=== PATIENT | male | born 1980 | race Two or more races ===

== ENCOUNTER 2021-04-05 12:10 | Emergency (ER) | payer OTHER ==
[~2021-04-05] VITALS: Ht 167.6 cm; Wt 70.3 kg
[2021-04-05 12:15] VITALS: BP 125/85
[2021-04-05] MEDS ORDERED: LIDOCAINE 1%-EPI 1:100,000 20 ML VIAL TP ONE (12:30)
[2021-04-05] MEDS ORDERED: TDAP [DIPH/PERTUSSIS/TET] 0.5 ML VIAL IM ONE ×2 (12:30→12:38)
[2021-04-05] MEDS ORDERED: LIDOCAINE 1% INJ 50 ML MDV IJ ONE (12:38)
[2021-04-05] MEDS ORDERED: LIDOCAINE 1%-EPI 1:100,000 20 ML VIAL ONE (12:39)
--- NOTE | 2021-04-05 13:09 | NUR ---
Patient discharged to home in stable condition. Written and verbal after care instructions given. Patient verbalizes understanding of instruction.
== END 2021-04-05 13:09 | disposition home or self-care (01) ==
LOC: ER 12:17
DX: S01.81XA Laceration without foreign body of other part of head, initial encounter (principal); W22.8XXA Striking against or struck by other objects, initial encounter; Y93.89 Activity, other specified; Y92.89 Other specified places as the place of occurrence of the external cause; Y99.8 Other external cause status
CPT/HCPCS: 12013; 90471; 90715; 99283; J3490

== ENCOUNTER 2021-04-12 09:31 | Emergency (ER) | payer OTHER ==
[~2021-04-12] VITALS: Ht 167.6 cm; Wt 69.9 kg
[2021-04-12 09:45] VITALS: BP 142/92
--- NOTE | 2021-04-12 10:00 | NUR ---
SUTURE REMOVED BY .
--- NOTE | 2021-04-12 10:05 | NUR ---
Patient discharged to home in stable condition. Written and verbal after care instructions given. Patient verbalizes understanding of instruction.
== END 2021-04-12 10:05 | disposition home or self-care (01) ==
LOC: EDUNIT# 09:31 → ER 09:35
DX: S01.81XD Laceration without foreign body of other part of head, subsequent encounter (principal); W22.8XXD Striking against or struck by other objects, subsequent encounter

== ENCOUNTER 2024-12-08 20:41 | Emergency (ER) | payer OTHER ==
[~2024-12-08] VITALS: Ht 167.6 cm; Wt 72.6 kg
[2024-12-08] MEDS ORDERED: HYDROCODONE/APAP 5/325MG TABLET ONE (22:53)
[2024-12-08] MEDS ORDERED: IBUPROFEN 400 MG TABLET ONE (22:54)
[2024-12-08] MEDS: HYDROCODONE/APAP 5/325MG TABLET PO ONE (22:57)
[2024-12-08] MEDS: IBUPROFEN 400 MG TABLET PO ONE (22:57)
[2024-12-09] MEDS ORDERED: HYDROCODONE/APAP 5/325MG TABLET ONE (01:57)
[2024-12-09] MEDS: HYDROCODONE/APAP 5/325MG TABLET PO ONE (02:00)
[2024-12-09] MEDS ORDERED: TRAM50TA2 PO (03:17)
[2024-12-09 03:21] VITALS: BP 172/111; TEMP 97.9; O2SAT 97
== END 2024-12-09 03:21 | disposition home or self-care (01) ==
LOC: ER 20:45
DX: M25.532 Pain in left wrist (principal); F17.200 Nicotine dependence, unspecified, uncomplicated; Z59.01 Sheltered homelessness; Z98.890 Other specified postprocedural states
CPT/HCPCS: 73110